=== PATIENT | female | born 1940 | race Caucasian/White ===

== ENCOUNTER 2017-03-21 09:56 | Emergency (ER) | payer OTHER ==
[~2017-03-21] VITALS: Ht 154.9 cm; Wt 60.6 kg
[~2017-03-21 09:56] MED LIST: REST0.05 OU; TOBR.3%O RIGHT EYE
[2017-03-21 10:10] VITALS: BP 208/98; PULSE 75; RESP 16; TEMP 98.1; O2SAT 97
--- NOTE | 2017-03-21 10:36 | PD ---
HPI Chief Complaint: Abdominal Pain Time Seen by Provider: 10:18 Travel History International Travel<30 days: No Contact w/Intl Traveler<30days: No Traveled to known affect area: No History of Present Illness HPI This 77-year-old female says she been having pain across her mid abdomen for months. He has been seeing her doctor and in February she had scans of the chest and also of the abdomen and pelvis both essentially negative. She has had a colonoscopy done for evaluation of his face. She says the pain does not appear to be affected by eating. It has been fairly constant. Seems a little bit worse now and she is having some pain in the right upper quadrant and in the back of the right chest. She has had upper and lower endoscopies and was told they're both normal. There is no complaint of numbness or tingling in the legs or any weakness. He had a mastectomy many years ago PFSH Past Medical History Asthma: Yes Anxiety: Yes Cancer: Yes (LEFT BREAST) Chemotherapy: Yes (1984 AFTER BREAST CANCER) Diabetes: No Glaucoma: No Headaches: Yes Hepatitis: No Hiatal Hernia: Yes Hypertension: Yes Respiratory: Yes (HX ASTHMA) Thyroid Disease: No Influenza Vaccination: No PNEUMOCCOCAL Vaccine (Year): 2 ?: Not Menopausal: Yes Past Surgical History Abdominal Surgery: Yes (APPENDECTOMY) Appendectomy: Yes Eye Surgery: Yes (CK CATARACT EXTRACTION/IMPLANTS) Genitourinary Surgery: Yes (BLADDER SURGERY X 2) Gynecologic Surgery: Yes (HYSTERECTOMY) Hysterectomy: Yes Mastectomy: Yes (LEFT) Thoracic Surgery: Yes (LEFT MASTECTOMY) Other Surgery: Yes Social History Alcohol Use: No Tobacco Use: No Substance Use: No Allergies-Medications (Allergen,Severity, Reaction): Coded Allergies: acetaminophen (Unverified Allergy, Severe, NAUSEA, 03/21/17) oxycodone (Unverified Allergy, Severe, NAUSEA, 03/21/17) propoxyphene (Unverified Allergy, Severe, Nausea/Vomiting, 03/21/17) Reported Meds & Prescriptions Reported Meds & Active Scripts Active Review of Systems General / Constitutional: No: Fever, Chills Eyes: No: Diploplia, Blurred Vision HENT: No: Headaches, Vertigo Cardiovascular: No: Chest Pain or Discomfort, Palpitations Respiratory: No: Cough, Shortness of Breath Gastrointestinal: Positive: Abdominal Pain Genitourinary: No: Urgency, Frequency Musculoskeletal: No: Myalgias Skin: No Rash, No Itching Neurologic: No: Weakness Endocrine: No: Cold Intolerance Hematologic/Lymphatic: No: Easy Bruising Physical Exam Narrative GENERAL female SKIN: Focused skin assessment warm/dry. HEAD: Atraumatic. Normocephalic. EYES: Pupils equal and round. No scleral icterus. No injection or drainage. ENT: No nasal bleeding or discharge. Mucous membranes pink and moist. NECK: Trachea midline. No JVD. CARDIOVASCULAR: Regular rate and rhythm. No murmur appreciated. RESPIRATORY: No accessory muscle use. Clear to auscultation. Breath sounds equal bilaterally. GASTROINTESTINAL: Abdomen soft, there is some epigastric tenderness without guarding or rigidity, nondistended. Hepatic and splenic margins not palpable. There is some tenderness in the right paraspinal muscles on the right MUSCULOSKELETAL: No obvious deformities. No clubbing. No cyanosis. No edema. NEUROLOGICAL: Awake and alert. No obvious cranial nerve deficits. Motor grossly within normal limits. Normal speech. PSYCHIATRIC: Appropriate mood and affect; insight and judgment normal. Data Data Last Documented VS Vital Signs Date Time Temp Pulse Resp B/P (MAP) Pulse Ox O2 Delivery O2 Flow Rate FiO2 03/21/17 13:08 18 03/21/17 12:09 78 196/84 (121) 95 Room Air 03/21/17 10:10 98.1 Orders Orders Electrocardiogram (03/21/17 10:28) Complete Blood Count With Diff (03/21/17 10:28) Comprehensive Metabolic Panel (03/21/17 10:28) Troponin I (03/21/17 10:28) Lipase (03/21/17 10:28) Us Abdomen Gallbladder (03/21/17 10:28) Acetamin-Hydrocod 325-5 Mg (Ponder 5-325 (03/21/17 11:45) Acetaminophen (Tylenol) (03/21/17 11:45) Ondansetron Inj (Zofran Inj) (03/21/17 11:45) Ct Thor Spine W/O Contrast (03/21/17 11:43) Labs Laboratory Tests Test 03/21/17 10:45 White Blood Count 8.0 TH/MM3 Red Blood Count 4.33 MIL/MM3 Hemoglobin 12.9 GM/DL Hematocrit 38.2 % Mean Corpuscular Volume 88.2 FL Mean Corpuscular Hemoglobin 29.9 PG Mean Corpuscular Hemoglobin Concent 33.9 % Red Cell Distribution Width 12.3 % Platelet Count 197 TH/MM3 Mean Platelet Volume 9.0 FL Neutrophils (%) (Auto) 68.9 % Lymphocytes (%) (Auto) 24.4 % Monocytes (%) (Auto) 4.9 % Eosinophils (%) (Auto) 0.8 % Basophils (%) (Auto) 1.0 % Neutrophils # (Auto) 5.5 TH/MM3 Lymphocytes # (Auto) 1.9 TH/MM3 Monocytes # (Auto) 0.4 TH/MM3 Eosinophils # (Auto) 0.1 TH/MM3 Basophils # (Auto) 0.1 TH/MM3 CBC Comment DIFF FINAL Differential Comment Blood Urea Nitrogen 12 MG/DL Creatinine 0.78 MG/DL Random Glucose 135 MG/DL Total Protein 7.3 GM/DL Albumin 3.6 GM/DL Calcium Level 9.3 MG/DL Alkaline Phosphatase 84 U/L Aspartate Amino Transf (AST/SGOT) 26 U/L Alanine Aminotransferase (ALT/SGPT) 22 U/L Total Bilirubin 0.5 MG/DL Sodium Level 137 MEQ/L Potassium Level 4.3 MEQ/L Chloride Level 104 MEQ/L Carbon Dioxide Level 27.2 MEQ/L Anion Gap 6 MEQ/L Estimat Glomerular Filtration Rate 71 ML/MIN Troponin I LESS THAN 0.02 NG/ML Lipase 184 U/L MDM Medical Decision Making Medical Screen Exam Complete: Yes Emergency Medical Condition: Yes Medical Record Reviewed: Yes Differential Diagnosis Differential includes gastritis pancreatitis cholecystitis Narrative Course Lab work is normal. Patient does appear uncomfortable with her pain in spite of negative CAT scans and endoscopy's. I did order an ultrasound of the gallbladder. There is minimal sludge and mild gallbladder thickening. Etiology for the pain has not been determined. The pain does not appear to be aggravated by eating and I'm wondering if this might be related to radiculopathy. I have ordered a CT of the thoracic spine. The CT scan has been done. There is no significant degenerative changes or stenosis of the thoracic spine and degenerative disc disease at L1-L2 with mild bilateral foraminal stenosis. This would not explain the pain wrapping around the upper abdomen. I have not determined the cause for the pain. He did recommend that she take some Zantac empirically and I will prescribe some Lortab. I recommended she follow up with her primary care doctor or the GI doctor Diagnosis Primary Impression: Epigastric pain Scripts Hydrocodone/Acetaminophen (Hydrocodone-Acetamin 5-325 mg) 5 Mg-325 Mg Tablet 1 TAB PO Q6HR for Pain, #20 Prov: Vladimir Moore MD 03/21/17 Ranitidine (Zantac) 150 Mg Tab 150 MG PO BID for Reduce Stomach Acid, #60 TAB 0 Refills Prov: Vladimir Moore MD 03/21/17 Disposition: 01 DISCHARGE HOME Condition: Stable Vladimir Moore MD Mar 21, 2017 10:36
[2017-03-21 11:03] LABS: CHLORIDE 104 MEQ/L (98-107); SODIUM (NA) 137 MEQ/L (136-145)
[2017-03-21 11:05] LABS: AUTOMATED NEUTROPHIL # 5.5 TH/MM3 (1.8-7.7); BASOPHIL # 0.1 TH/MM3 (0-0.2); EOSINOPHIL # 0.1 TH/MM3 (0-0.4); EOSINOPHIL % 0.8 % (0.0-4.0); HEMATOCRIT 38.2 % (35.0-46.0); HEMO FLAGS DIFF FINAL; LYMPH % 24.4 % (9.0-44.0); LYMPHOCYTE # 1.9 TH/MM3 (1.0-4.8); MEAN CELL VOLUME 88.2 FL (80.0-100.0); MEAN CORPUSCULAR HEMOGLOBIN 29.9 PG (27.0-34.0); MEAN CORPUSCULAR HGB CONC 33.9 % (32.0-36.0); MONO % 4.9 % (0.0-8.0); NEUT % 68.9 % (16.0-70.0); PLATELET COUNT 197 TH/MM3 (150-450); RED BLOOD COUNT 4.33 MIL/MM3 (4.00-5.30); RED CELL DISTRIBUTION WIDTH 12.3 % (11.6-17.2)
[2017-03-21 11:07] LABS: ANION GAP 6 MEQ/L (5-15); BICARBONATE 27.2 MEQ/L (21.0-32.0); BLOOD UREA NITROGEN 12 MG/DL (7-18)
[2017-03-21 11:09] LABS: ALT (GPT) 22 U/L (10-53); AST (GOT) 26 U/L (15-37); POTASSIUM 4.3 MEQ/L (3.5-5.1)
[2017-03-21 11:10] LABS: GLOMERULAR FILTRATION RATE 71 ML/MIN (>89)
[2017-03-21 11:11] LABS: TOTAL BILIRUBIN ADULT 0.5 MG/DL (0.2-1.0)
[2017-03-21 11:12] LABS: ALKALINE PHOSPHATASE 84 U/L (45-117)
[2017-03-21 11:15] VITALS: BP 200/85; PULSE 67; RESP 18; O2SAT 97
--- NOTE | 2017-03-21 11:26 | RADRPT ---
EXAM DATE/TIME: 03/21/2017 10:51 [facility] COMPARISON: CT ABDOMEN & PELVIS W/O CONTRAST, July 08, 2013, 2:04. INDICATIONS : Right upper quadrant pain. MEDICAL HISTORY : Hypertension. Hernia, hiatal. Carcinoma, breast. Asthma. SURGICAL HISTORY : Mastectomy, left. Appendectomy. Hysterectomy. Bilatearl cataract extraction with implants. Bladder starks rgery x2. Chemotherapy. ENCOUNTER: Initial ACUITY: 1 month PAIN SCORE: 10/10 LOCATION: Right upper quadrant MEASUREMENTS: LIVER: 13.1 cm length COMMON DUCT: 6 mm RIGHT KIDNEY: 8.1 x 4.2 x 3.1 cm FINDINGS: LIVER: Normal echotexture without focal lesion or ductal dilatation. COMMON DUCT: No intraluminal mass or stone visualized. GALLBLADDER: Mild gallbladder wall thickening. Minimal dependent debris. No definite mobile stones. PANCREAS: The visualized portions are within normal limits. RIGHT KIDNEY: No evidence of hydronephrosis, stone, or mass. CONCLUSION: Mild gallbladder sludge and wall thickening. Michele Romero MD on March 21, 2017 at 11:22 Board Certified Radiologist. This report was verified electronically.
[2017-03-21] MEDS ORDERED: ONDANSETRON HCL 4 MG/2 ML VIAL IV PUSH ONE (11:45)
[2017-03-21] MEDS ORDERED: ACETAMINOPHEN 325 MG TAB PO ONE (11:45)
[2017-03-21] MEDS ORDERED: ACETAMINOPHEN/HYDROcodone 325 MG/5 MG TAB PO ONE (11:45)
[2017-03-21 12:09] VITALS: BP 196/84; PULSE 78; RESP 18; O2SAT 95
--- NOTE | 2017-03-21 13:14 | RADRPT ---
EXAM DATE/TIME: 03/21/2017 12:23 [facility] COMPARISON: No previous studies available for comparison. INDICATIONS : Upper back pain. Radiculopathy from center of chest under right breast to her back. RADIATION DOSE: 25.77 CTDIvol (mGy) MEDICAL HISTORY : Carcinoma, breast. Hypertension. SURGICAL HISTORY : Appendectomy. Mastectomy, left.Hysterectomy.Bladder surgery. ENCOUNTER: Initial ACUITY: 1 week PAIN SCALE: 7/10 LOCATION: Thoracic spine TECHNIQUE: Volumetric scanning of the thoracic spine was performed. Multiplanar reconstructions in the sagittal , coronal and oblique axial planes were performed. Using automated exposure control and adjustment o f the mA and/or kV according to patient size, radiation dose was kept as low as reasonably achievable to obtain optimal diagnostic quality images. DICOM format image data is available electronically f or review and comparison. FINDINGS: The vertebral bodies of the thoracic spine are in normal alignment without evidence of subluxation. Vertebral body height is maintained. No fractures are seen. T1-T2: Normal. T2-T3: The thecal sac has a normal diameter. No evidence of disc bulge or protrusion. T3-T4: The thecal sac has a normal diameter. No evidence of disc bulge or protrusion. T4-T5: The thecal sac has a normal diameter. No evidence of disc bulge or protrusion. T5-T6: The thecal sac has a normal diameter. No evidence of disc bulge or protrusion. T6-T7: The thecal sac has a normal diameter. No evidence of disc bulge or protrusion. T7-T8: The thecal sac has a normal diameter. No evidence of disc bulge or protrusion. T8-T9: The thecal sac has a normal diameter. No evidence of disc bulge or protrusion. T9-T10: The thecal sac has a normal diameter. No evidence of disc bulge or protrusion. T10-T11: The thecal sac has a normal diameter. No evidence of disc bulge or protrusion. T11-T12: The thecal sac has a normal diameter. No evidence of disc bulge or protrusion. T12-L1: The thecal sac has a normal diameter. No evidence of disc bulge or protrusion. The L1/L2 disc has mild to moderate loss of height and vacuum phenomena. There is a small, broad/diff use disc osteophyte complex and mild bilateral uncovertebral and facet osteoarthritis. Mild bilateral L1/L2 foraminal stenosis. CONCLUSION: No significant degenerative changes or stenosis in the thoracic spine. Degenerative disc disease evid ent at L1/L2 with mild bilateral foraminal stenosis. Michele Estevez MD on March 21, 2017 at 13:10 Board Certified Radiologist. This report was verified electronically.
[2017-03-21 13:19] VITALS: BP 298/91; PULSE 70; RESP 18; O2SAT 97
[2017-03-21] MEDS ORDERED: ZANT150T2 PO (13:25)
[2017-03-21] MEDS ORDERED: HYDR-3516 PO (13:25)
--- NOTE | 2017-03-22 18:28 | EKG ---
Date Performed: 03/21/2017 Time Performed: 10:34:49 PTAGE: 77 years EKG: Sinus rhythm WITH MARKED SINUS ARRHYTHMIA MARKED LEFT AXIS DEVIATION LEFT VENTRICULAR HYPERTROPHY AND ST-T CHANGE POSSIBLE SEPTAL MYOCARDIAL INFARCTION ABNORMAL ECG PREVIOUS TRACING : 07/10/2013 00.49 DOCTOR: Heidy Zelaya Interpretating Date/Time 03/22/2017 18:19:18
== END 2017-03-21 13:41 | disposition home or self-care (01) ==
LOC: PHED 09:56
DX: R10.13 Epigastric pain (principal); J45.909 Unspecified asthma, uncomplicated; I10 Essential (primary) hypertension; Z85.3 Personal history of malignant neoplasm of breast
CPT/HCPCS: 72128; 76705; 80053; 83690; 84484; 85025; 93005; 96374; 99285; J2405

== ENCOUNTER 2017-06-08 19:44 | Emergency (ER) | payer OTHER ==
[~2017-06-08] VITALS: Ht 154.9 cm; Wt 60.0 kg
[~2017-06-08 19:44] MED LIST changes: +HYDR-3516 PO; -REST0.05 OU; -TOBR.3%O RIGHT EYE; +ZANT150T2 PO
[2017-06-08 19:50] VITALS: BP 216/86; PULSE 77; RESP 16; TEMP 98.4; O2SAT 96
[2017-06-08] MEDS ORDERED: MECL1TAB42 (21:10)
[2017-06-08] MEDS ORDERED: SODIUM CHLOR 0.9% 1000 ML INJ 1,000 ML IV ONE (21:18)
--- NOTE | 2017-06-08 21:28 | PD ---
HPI Chief Complaint: Hypertension Time Seen by Provider: 21:08 Travel History International Travel<30 days: No Contact w/Intl Traveler<30days: No Traveled to known affect area: No History of Present Illness HPI The patient is a 77-year-old female that had a gradual onset of a left frontoparietal headache beginning at 10 AM this morning. The patient does have nausea and vomiting. She experienced fairly severe vertigo today. She has had vertigo in the past but states this is the worst episode of vertigo she has had. She states she normally does not have headaches and has never had a headache like this before. It was not a thunderclap type headache of sudden onset. The headache is mostly subsided now. She is nauseated and the nausea apparently is associated with vertigo. She denies any focal neurologic change. She denies any fever. She denies any chest pain or shortness of breath. PFSH Past Medical History Asthma: Yes Anxiety: Yes Cancer: Yes (LEFT BREAST) Cardiovascular Problems: No Chemotherapy: Yes Diabetes: No Diminished Hearing: No Glaucoma: No Headaches: Yes Hepatitis: No Hiatal Hernia: Yes Hypertension: Yes Medical other: Yes (VERTIGO) Respiratory: Yes (HX ASTHMA) Thyroid Disease: No Influenza Vaccination: No PNEUMOCCOCAL Vaccine (Year): 2 ?: Not Menopausal: Yes Past Surgical History Abdominal Surgery: Yes (APPENDECTOMY) Appendectomy: Yes Eye Surgery: Yes (CK CATARACT EXTRACTION/IMPLANTS) Genitourinary Surgery: Yes (BLADDER SURGERY X 2) Gynecologic Surgery: Yes Hysterectomy: Yes Mastectomy: Yes (LEFT) Thoracic Surgery: Yes (LEFT MASTECTOMY) Other Surgery: Yes Social History Alcohol Use: No Tobacco Use: No Substance Use: No Allergies-Medications (Allergen,Severity, Reaction): Coded Allergies: acetaminophen (Unverified Allergy, Severe, NAUSEA, 06/08/17) oxycodone (Unverified Allergy, Severe, NAUSEA, 06/08/17) propoxyphene (Unverified Allergy, Severe, Nausea/Vomiting, 06/08/17) Reported Meds & Prescriptions Reported Meds & Active Scripts Active Reported Meclizine 25 (Meclizine HCl) 25 Mg Tab Review of Systems Except as stated in HPI: all other systems reviewed are Neg Physical Exam Narrative GENERAL: The patient is alert, oriented 3 in moderate apparent distress with her headache and nausea. Her vital signs show blood pressure 216/86 but otherwise normal. SKIN: Focused skin assessment warm/dry. HEAD: Atraumatic. Normocephalic. EYES: Pupils equal and round. No scleral icterus. No injection or drainage. ENT: No nasal bleeding or discharge. Mucous membranes pink and moist. NECK: Trachea midline. No JVD. CARDIOVASCULAR: Regular rate and rhythm. No murmur appreciated. RESPIRATORY: No accessory muscle use. Clear to auscultation. Breath sounds equal bilaterally. GASTROINTESTINAL: Abdomen soft, non-tender, nondistended. Hepatic and splenic margins not palpable. MUSCULOSKELETAL: No obvious deformities. No clubbing. No cyanosis. No edema. NEUROLOGICAL: Awake and alert. No obvious cranial nerve deficits. Motor grossly within normal limits. Normal speech. PSYCHIATRIC: Appropriate mood and affect; insight and judgment normal. Data Data Last Documented VS Vital Signs Date Time Temp Pulse Resp B/P (MAP) Pulse Ox O2 Delivery O2 Flow Rate FiO2 06/08/17 19:50 98.4 77 16 216/86 (129) 96 Orders Orders Complete Blood Count With Diff (06/08/17 21:18) Comprehensive Metabolic Panel (06/08/17 21:18) Ct Brain W/O Iv Contrast(Rout) (06/08/17 21:18) Ecg Monitoring (06/08/17 21:18) Iv Access Insert/Monitor (06/08/17 21:18) Oximetry (06/08/17 21:18) Sodium Chloride 0.9% Flush (Ns Flush) (06/08/17 21:30) Ondansetron Inj (Zofran Inj) (06/08/17 21:30) Prochlorperazine Inj (Compazine Inj) (06/08/17 21:30) Sodium Chlor 0.9% 1000 Ml Inj (Ns 1000 M (06/08/17 21:18) Electrocardiogram (06/08/17 20:39) Labs Laboratory Tests Test 06/08/17 21:40 White Blood Count 8.8 TH/MM3 Red Blood Count 4.37 MIL/MM3 Hemoglobin 13.2 GM/DL Hematocrit 38.6 % Mean Corpuscular Volume 88.4 FL Mean Corpuscular Hemoglobin 30.2 PG Mean Corpuscular Hemoglobin Concent 34.2 % Red Cell Distribution Width 12.1 % Platelet Count 227 TH/MM3 Mean Platelet Volume 9.4 FL Neutrophils (%) (Auto) 58.6 % Lymphocytes (%) (Auto) 32.4 % Monocytes (%) (Auto) 5.7 % Eosinophils (%) (Auto) 2.1 % Basophils (%) (Auto) 1.2 % Neutrophils # (Auto) 5.2 TH/MM3 Lymphocytes # (Auto) 2.8 TH/MM3 Monocytes # (Auto) 0.5 TH/MM3 Eosinophils # (Auto) 0.2 TH/MM3 Basophils # (Auto) 0.1 TH/MM3 CBC Comment DIFF FINAL Differential Comment Blood Urea Nitrogen 13 MG/DL Creatinine 0.71 MG/DL Random Glucose 112 MG/DL Total Protein 7.4 GM/DL Albumin 3.5 GM/DL Calcium Level 9.4 MG/DL Alkaline Phosphatase 93 U/L Aspartate Amino Transf (AST/SGOT) 21 U/L Alanine Aminotransferase (ALT/SGPT) 16 U/L Total Bilirubin 0.3 MG/DL Sodium Level 138 MEQ/L Potassium Level 4.1 MEQ/L Chloride Level 105 MEQ/L Carbon Dioxide Level 25.5 MEQ/L Anion Gap 8 MEQ/L Estimat Glomerular Filtration Rate 80 ML/MIN [facility] Medical Decision Making Medical Screen Exam Complete: Yes Emergency Medical Condition: Yes Medical Record Reviewed: Yes Interpretation(s) The CT brain is normal. The complete metabolic profile shows a GFR of 80 but is otherwise unremarkable. The CBC is normal. Differential Diagnosis Migraine headache, cluster headache, subarachnoid hemorrhage, hypertensive headache Narrative Course The blood pressure came down as low as 178/90. It is now up slightly at 178/ 108. The patient has no headache now and has minimal nausea. She will be given Compazine to take at home. She should follow-up with her primary care physician about her blood pressure, hopefully Saturday. Diagnosis Primary Impression: Headache Additional Impressions: Elevated blood pressure reading Nausea & vomiting Additional Instructions: As we discussed, follow-up with your primary care physician on Saturday about your blood pressure. Your blood pressure has been elevated but has gone down to nearly normal here in the emergency department. The Compazine is for nausea and it is one tablet every 6 hours as needed. If you have the severe headache again with the elevated blood pressure you should return to emergency department and at that time we will likely have to prescribe you hypertensive medications. Med/Other Pt SpecificInfo: Prescription(s) given Scripts Prochlorperazine Maleate (Prochlorperazine Maleate) 10 Mg Tab 10 MG PO Q6H Y for NAUSEA OR VOMITING, #21 TAB 0 Refills Prov: Ethan Collazo MD 06/09/17 Disposition: 01 DISCHARGE HOME Condition: Stable Ethan Collazo MD Jun 08, 2017 21:28
[2017-06-08] MEDS ORDERED: SODIUM CHLORIDE 0.9% FLUSH 10 ML FLUSH IVF PRN (21:30)
[2017-06-08] MEDS ORDERED: PROCHLORPERAZINE INJ 10 MG/2 ML VIAL IVP ONE (21:30)
[2017-06-08] MEDS ORDERED: ONDANSETRON HCL 4 MG/2 ML VIAL IVP ONE (21:30)
[2017-06-08 22:04] LABS: AUTOMATED NEUTROPHIL # 5.2 TH/MM3 (1.8-7.7); BASOPHIL # 0.1 TH/MM3 (0-0.2); BASOPHIL % 1.2 % (0.0-2.0); EOSINOPHIL # 0.2 TH/MM3 (0-0.4); EOSINOPHIL % 2.1 % (0.0-4.0); HEMATOCRIT 38.6 % (35.0-46.0); HEMOGLOBIN 13.2 GM/DL (11.6-15.3); LYMPH % 32.4 % (9.0-44.0); LYMPHOCYTE # 2.8 TH/MM3 (1.0-4.8); MEAN CELL VOLUME 88.4 FL (80.0-100.0); MEAN CORPUSCULAR HEMOGLOBIN 30.2 PG (27.0-34.0); MEAN CORPUSCULAR HGB CONC 34.2 % (32.0-36.0); MEAN PLATELET VOLUME 9.4 FL (7.0-11.0); MONO % 5.7 % (0.0-8.0); MONOCYTE # 0.5 TH/MM3 (0-0.9); NEUT % 58.6 % (16.0-70.0); PLATELET COUNT 227 TH/MM3 (150-450); RED BLOOD COUNT 4.37 MIL/MM3 (4.00-5.30); RED CELL DISTRIBUTION WIDTH 12.1 % (11.6-17.2); WHITE BLOOD COUNT 8.8 TH/MM3 (4.0-11.0)
[2017-06-08 22:11] LABS: CHLORIDE 105 MEQ/L (98-107); SODIUM (NA) 138 MEQ/L (136-145)
[2017-06-08 22:14] LABS: CALCIUM 9.4 MG/DL (8.5-10.1)
[2017-06-08 22:15] LABS: ALBUMIN 3.5 GM/DL (3.4-5.0); BICARBONATE 25.5 MEQ/L (21.0-32.0); BLOOD UREA NITROGEN 13 MG/DL (7-18); GLUCOSE,RANDOM 112 MG/DL (74-106)
[2017-06-08 22:18] LABS: ALT (GPT) 16 U/L (10-53); AST (GOT) 21 U/L (15-37); CREATININE 0.71 MG/DL (0.50-1.00); GLOMERULAR FILTRATION RATE 80 ML/MIN (>89)
[2017-06-08 22:20] LABS: TOTAL BILIRUBIN ADULT 0.3 MG/DL (0.2-1.0); TOTAL PROTEIN 7.4 GM/DL (6.4-8.2)
[2017-06-08 22:21] LABS: ALKALINE PHOSPHATASE 93 U/L (45-117)
[2017-06-08 22:47] VITALS: BP 180/66; PULSE 66; RESP 20
--- NOTE | 2017-06-08 22:49 | RADRPT ---
EXAM DATE/TIME: 06/08/2017 22:15 [facility] COMPARISON: No previous studies available for comparison. INDICATIONS : Vertigo, high blood pressure, cephalgia RADIATION DOSE: 59.23 CTDIvol (mGy) MEDICAL HISTORY : Hypertension. Carcinoma, breast. SURGICAL HISTORY : Mastectomy, left. Hysterectomy.Appendectomy.cataracts, bladder ENCOUNTER: Initial ACUITY: 1 day PAIN SCALE: 5/10 LOCATION: Bilateral cranial TECHNIQUE: Multiple contiguous axial images were obtained of the head. Using automated exposure control and adj ustment of the mA and/or kV according to patient size, radiation dose was kept as low as reasonably a chievable to obtain optimal diagnostic quality images. DICOM format image data is available electro nically for review and comparison. FINDINGS: CEREBRUM: The ventricles are normal for age. No evidence of midline shift, mass lesion, hemorrhage or acute in farction. No extra-axial fluid collections are seen. POSTERIOR FOSSA: The cerebellum and brainstem are intact. The 4th ventricle is midline. The cerebellopontine angle i s unremarkable. EXTRACRANIAL: The visualized portion of the orbits is intact. SKULL: The calvaria is intact. No evidence of skull fracture. CONCLUSION: Negative noncontrast head CT. Michele Estevez MD on June 08, 2017 at 22:46 Board Certified Radiologist. This report was verified electronically.
[2017-06-08 23:23] VITALS: BP 170/77; PULSE 72; RESP 20; O2SAT 98
[2017-06-08 23:53] VITALS: BP 178/108; PULSE 84; RESP 20
[2017-06-09] MEDS ORDERED: PROC10TA PO (00:20)
[2017-06-09 00:45] VITALS: BP 178/108
--- NOTE | 2017-06-09 12:26 | EKG ---
Date Performed: 06/08/2017 Time Performed: 20:39:01 PTAGE: 77 years EKG: Sinus rhythm MARKED LEFT AXIS DEVIATION LEFT VENTRICULAR HYPERTROPHY AND ST-T CHANGE POSSIBLE SEPTAL MYOCARDIAL I NFARCTION ABNORMAL ECG PREVIOUS TRACING : 03/21/2017 10.34 Since the prior tracing, there has been no significant phan DOCTOR: Baljinder Doyle Interpretating Date/Time 06/09/2017 12:23:09
== END 2017-06-09 00:52 | disposition home or self-care (01) ==
LOC: PHED 19:44
DX: R51 Headache (principal); R03.0 Elevated blood-pressure reading, without diagnosis of hypertension; R11.2 Nausea with vomiting, unspecified; J45.909 Unspecified asthma, uncomplicated; Z85.3 Personal history of malignant neoplasm of breast
CPT/HCPCS: 70450; 80053; 85025; 93005; 96374; 96375; 99285; J0780; J2405; J7030